=== PATIENT | male | born 1965 | race Caucasian/White ===

== ENCOUNTER 2022-03-30 13:41 | Emergency (ER) | payer OTHER ==
[2022-03-30 14:04] LABS: BASOPHIL 1.7 % (0-2); EOSINOPHIL 1.2 % (0-5); HCT 46.9 % (42.0-52.0); HGB 15.3 g/dl (13.2-18.0); LYMPHOCYTE 24.3 % (15-48); MCH 30.8 pg (25.0-31.0); MCHC 32.6 g/dL (32.0-36.0); MCV 94.4 fL (78.0-100.0); MONOCYTE 7.3 % (0-12); MPV 9.9 fL (6.0-9.5); NEUTROPHIL 57.9 % (41-80); NRBC 0.3; PLT 237 K/uL (150-400); RBC 4.97 M/uL (4.70-6.00); RDW 13.9 % (11.5-14.0); WBC 12.1 K/uL (4.0-10.5)
[2022-03-30 14:09] LABS: INR 1.1 (0.9-1.2); PROTHROMBIN TIME 13.9 SECONDS (11.9-13.9); PTT 29.7 SECONDS (24.9-34.6)
[2022-03-30 14:28] LABS: ALBUMIN 3.9 g/dL (3.4-5.0); BILIRUBIN - TOTAL 0.5 mg/dL (0.2-1.0); BUN/CREAT RATIO (CALC) 19.8 RATIO; CREATININE 0.96 mg/dL (0.67-1.17); GLOBULIN (CALCULATION) 3.4 g/dL; POTASSIUM 3.2 mmol/L (3.5-5.1); TOTAL PROTEIN 7.3 g/dL (6.4-8.2)
== END 2022-03-30 15:08 | disposition other institution (70) ==
LOC: FER 13:41
PROVIDERS: Emergency Medicine
DX: I46.9 Cardiac arrest, cause unspecified (principal); I21.4 Non-ST elevation (NSTEMI) myocardial infarction; I10 Essential (primary) hypertension; E11.9 Type 2 diabetes mellitus without complications; Z88.2 Allergy status to sulfonamides; Z88.7 Allergy status to serum and vaccine; Z88.6 Allergy status to analgesic agent
CPT/HCPCS: 31500; 36415; 36600; 70450; 71045; 72125; 80053; 82550; 82553; 82803; 83605; 84484; 85025; 85610; 85730; 92950; 93005; 96365; 96368; 96375; J0171; J0282; J1644; J2250; J3480; J7060